=== PATIENT | male | born 1960 | race Caucasian/White ===

== ENCOUNTER → 2016-03-26 | Outpatient (REF) ==
[~2016-03-26] MED LIST: ADDERALL10 MG PO; ADDERALL20 MG PO; ASPIRIN 81M81 MG/TA2 PO; ATIVAN 0.50.5 MG/TAB PO; AVALIDE 12.5 MG1 TA1 PO; AVALIDE PO; AVAPRO300 M1 PO; CARDIZEM CD 18180 MG PO; IBU800 M1 PO; LAMICTAL 25MG T25 MG PO; LEVOTHROID0.075 MG PO; LEVOTHYROXIN0.075 MG PO; LIPITOR20 MG PO; NAPROSYN 2250 MG/TAB PO; NITROSTAT0.4 MG/TAB SL; NORCO 325 MG-51 TAB PO; NORCO 325 MG-7.1 TAB; PERCOCET 325 MG1 TA2 PO; PERCOCET 5/321 UDTAB PO; PRIL40 PO; PRILOSEC 20MG20 MG PO; PRILOSEC20 MG PO; PRILOSEC40 MG PO; PROZAC 10MG10 MG PO; PROZAC40 MG PO; SEROQUEL50 MG PO; SERTRALINE100 MG PO; SYNTHROID0.088 MG/T PO; TESTOSTERONE; TESTOSTERONE SHOT; ULTRAM 50MG TAB50 MG; VALIUM5 MG PO
== END ==
LOC: ZLAB.WCH 10:34
DX: Z01.89 Encounter for other specified special examinations (principal)

== ENCOUNTER → 2016-03-30 | Outpatient (CLI) | payer BC | LOC: BHSO 09:21 | DX: F90.0 Attention-deficit hyperactivity disorder, predominantly inattentive type (principal) ==

== ENCOUNTER 2016-03-31 09:44 | Day surgery (SDC) | payer BC ==
[~2016-03-31] VITALS: Ht 180.3 cm; Wt 86.4 kg
[2016-03-31] VITALS (11 sets, daily range): BP systolic 98–123; BP diastolic 60–75; PULSE 61–82; TEMP 97.7
[~2016-03-31 09:44] MED LIST changes: -ADDERALL20 MG PO; -ASPIRIN 81M81 MG/TA2 PO; -ATIVAN 0.50.5 MG/TAB PO; -CARDIZEM CD 18180 MG PO; -LAMICTAL 25MG T25 MG PO; -LIPITOR20 MG PO; -NITROSTAT0.4 MG/TAB SL; -PROZAC 10MG10 MG PO
[2016-03-31 10:38] LABS: HEMATOCRIT 41.5 % (42.0-52.0); HEMOGLOBIN 14.1 g/dl (13.5-18.0); MEAN CELL VOLUME 85 fl (80.0-100.0); MEAN CORPUSCULAR HEMOGLOBIN 29 pg (27.0-31.0); MEAN CORPUSCULAR HGB CONC 34 g/dl (33.0-37.0); PLATELET COUNT 207 K/mm3 (130-400); RED BLOOD COUNT 4.89 M/mm3 (4.20-5.60); REDCELL DISTRIBUTION WIDTH-CV 13.2 % (11.5-14.5); WHITE BLOOD COUNT 5.9 K/mm3 (4.8-10.8)
[2016-03-31 10:47] LABS: INR 1.1 (0.8-3.0)
[2016-03-31] MEDS ORDERED: ASPIRIN 81M81 MG/TA2 PO (10:47)
[2016-03-31] MEDS ORDERED: PROZAC 10MG10 MG PO (10:48)
[2016-03-31] MEDS ORDERED: NITROSTAT0.4 MG/TAB SL (10:49)
[2016-03-31] MEDS ORDERED: CARDIZEM CD 18180 MG PO (10:50)
[2016-03-31 10:54] LABS: CALCIUM 9.6 mg/dL (8.4-10.2); CREATININE, serum 0.89 mg/dL (0.66-1.25); POTASSIUM 4.4 mmol/L (3.4-5.0)
[2016-03-31] MEDS ORDERED: LIPITOR20 MG PO (13:12)
== END 2016-03-31 16:00 | disposition home or self-care (01) ==
LOC: EUO 09:44 → COL.RAD 09:45 → EUO 09:45
PROVIDERS: Internal Medicine Cardiovascular Disease
DX: I25.10 Atherosclerotic heart disease of native coronary artery without angina pectoris (principal); R06.00 Dyspnea, unspecified; R94.39 Abnormal result of other cardiovascular function study; I08.1 Rheumatic disorders of both mitral and tricuspid valves; F98.8 Other specified behavioral and emotional disorders with onset usually occurring in childhood and adolescence; K21.9 Gastro-esophageal reflux disease without esophagitis; I10 Essential (primary) hypertension; G47.33 Obstructive sleep apnea (adult) (pediatric); E07.9 Disorder of thyroid, unspecified; Z79.82 Long term (current) use of aspirin; Z79.899 Other long term (current) drug therapy; Z87.891 Personal history of nicotine dependence
CPT/HCPCS: C1760; C1894; J2250; J3010; Q9967

== ENCOUNTER → 2016-04-05 | Outpatient (CLI) | payer BC ==
[~2016-04-05] MED LIST changes: +ADDERALL20 MG PO; +ASPIRIN 81M81 MG/TA2 PO; +ATIVAN 0.50.5 MG/TAB PO; +CARDIZEM CD 18180 MG PO; +LAMICTAL 25MG T25 MG PO; +LIPITOR20 MG PO; +NITROSTAT0.4 MG/TAB SL; +PROZAC 10MG10 MG PO
== END ==
LOC: COL.PUL 08:23
DX: R06.02 Shortness of breath (principal)

== ENCOUNTER → 2016-06-21 | Outpatient (CLI) | payer BC | LOC: BHSO 07:52 | DX: F90.0 Attention-deficit hyperactivity disorder, predominantly inattentive type (principal) ==

== ENCOUNTER → 2016-07-16 | Outpatient (CLI) | payer BC | LOC: BHSO 08:14 | DX: F90.0 Attention-deficit hyperactivity disorder, predominantly inattentive type (principal) ==

== ENCOUNTER 2016-07-17 09:58 | Emergency (ER) | payer BC ==
[~2016-07-17] VITALS: Ht 182.9 cm; Wt 90.9 kg
[~2016-07-17 09:58] MED LIST changes: -ADDERALL20 MG PO; -ATIVAN 0.50.5 MG/TAB PO; -LAMICTAL 25MG T25 MG PO
[2016-07-17 10:05] VITALS: BP 126/78; PULSE 87; TEMP 98.1
[2016-07-17] MEDS ORDERED: LAMICTAL 25MG T25 MG PO (10:25)
[2016-07-17] MEDS ORDERED: ADDERALL20 MG PO (10:26)
[2016-07-17] MEDS ORDERED: ATIVAN 0.50.5 MG/TAB PO (10:53)
== END 2016-07-17 11:05 | disposition home or self-care (01) ==
LOC: COL.ER 09:58
DX: R21 Rash and other nonspecific skin eruption (principal); R45.1 Restlessness and agitation; I10 Essential (primary) hypertension; F31.9 Bipolar disorder, unspecified; E03.9 Hypothyroidism, unspecified

== ENCOUNTER → 2016-09-22 | Outpatient (CLI) | payer BC ==
[~2016-09-22] MED LIST changes: +ADDERALL20 MG PO; +ATIVAN 0.50.5 MG/TAB PO; +LAMICTAL 25MG T25 MG PO
== END ==
LOC: BHSO 08:21
DX: F90.0 Attention-deficit hyperactivity disorder, predominantly inattentive type (principal)

== ENCOUNTER 2016-10-05 23:31 | Emergency (ER) | payer BC ==
[~2016-10-05] VITALS: Ht 182.9 cm; Wt 93.1 kg
[2016-10-05 23:36] VITALS: BP 133/63; TEMP 97.7
[2016-10-06 00:32] VITALS: PULSE 90
== END 2016-10-06 00:42 | disposition home or self-care (01) ==
LOC: COL.ER 23:31
DX: J34.89 Other specified disorders of nose and nasal sinuses (principal); E78.00 Pure hypercholesterolemia, unspecified; K21.9 Gastro-esophageal reflux disease without esophagitis; I10 Essential (primary) hypertension; F90.9 Attention-deficit hyperactivity disorder, unspecified type; Z79.82 Long term (current) use of aspirin
CPT/HCPCS: J1170

== ENCOUNTER 2016-12-07 19:10 | Emergency (ER) | payer BC ==
[~2016-12-07] VITALS: Ht 182.9 cm; Wt 93.2 kg
[2016-12-07 19:13] VITALS: BP 139/86; PULSE 71; TEMP 97.8
[2016-12-07] MEDS ORDERED: PREDNISONE20 MG PO (19:49)
== END 2016-12-07 20:04 | disposition home or self-care (01) ==
LOC: COL.ER 19:10
DX: L25.9 Unspecified contact dermatitis, unspecified cause (principal); J32.9 Chronic sinusitis, unspecified; I10 Essential (primary) hypertension; E03.9 Hypothyroidism, unspecified; B19.20 Unspecified viral hepatitis C without hepatic coma; Z79.82 Long term (current) use of aspirin; Z87.891 Personal history of nicotine dependence

== ENCOUNTER → 2017-01-06 | Outpatient (CLI) | payer BC ==
[~2017-01-06] MED LIST changes: +PREDNISONE20 MG PO
== END ==
LOC: BHSO 15:07
DX: F41.1 Generalized anxiety disorder (principal)

== ENCOUNTER → 2017-01-27 | Outpatient (REF) | LOC: ZLAB.WCH 12:07 | DX: Z01.89 Encounter for other specified special examinations (principal) ==

== ENCOUNTER → 2017-02-02 | Outpatient (CLI) | payer BC | LOC: BHSO 16:05 | DX: F41.1 Generalized anxiety disorder (principal) | CPT/HCPCS: G0463 ==

== ENCOUNTER → 2017-08-30 | Outpatient (REF) | LOC: ZLAB.WCH 15:59 | DX: Z01.89 Encounter for other specified special examinations (principal) ==

== ENCOUNTER 2017-09-04 22:32 | Emergency (ER) | payer BC ==
[~2017-09-04] VITALS: Ht 182.9 cm; Wt 104.5 kg
[2017-09-04 22:42] VITALS: TEMP 98.3
[2017-09-04 23:25] LABS: BASO % 0.5 % (0.0-2.0); EOS # 0.1 (0.0-0.7); EOS % 1.4 % (0-4.0); GRAN # 5.2 (1.4-6.5); GRAN % 60.4 % (42.2-75.2); HEMATOCRIT 43.4 % (42.0-52.0); HEMOGLOBIN 15.1 g/dl (13.5-18.0); LYMPH # 2.4 (1.2-3.4); LYMPH % 28.4 % (20.0-51.0); MEAN CELL VOLUME 83 fl (80.0-100.0); MEAN CORPUSCULAR HEMOGLOBIN 29 pg (27.0-31.0); MEAN CORPUSCULAR HGB CONC 35 g/dl (33.0-37.0); MEAN PLATELET VOLUME 10.7 fl (7.4-10.4); MONO # 0.8 (0.1-0.6); MONO % 8.8 % (1.7-9.3); PLATELET COUNT 247 K/mm3 (130-400); RED BLOOD COUNT 5.25 M/mm3 (4.20-5.60); REDCELL DISTRIBUTION WIDTH-CV 12.9 % (11.5-14.5)
[2017-09-04 23:29] LABS: INR 1.1 (0.8-3.0)
[2017-09-04 23:32] LABS: ALANINE AMINOTRANSFERASE 58 U/L (21-72); ALBUMIN 4.6 gm/dL (3.5-5.0); ALKALINE PHOSPHATASE 39 U/L (50-136); ANION GAP 14 mmol/L (7-16); AST,SGOT 39 U/L (15-37); BILIRUBIN,TOTAL 1.2 mg/dL (0.0-1.0); BLOOD UREA NITROGEN 27 mg/dL (9-20); CALCIUM 9.7 mg/dL (8.4-10.2); CARBON DIOXIDE 22 mmol/L (22-30); CHLORIDE 98 mmol/L (98-107); CREATININE, serum 1.62 mg/dL (0.66-1.25); GLUCOSE 113 mg/dL (74-106); POTASSIUM 3.7 mmol/L (3.4-5.0); SODIUM 134 mmol/L (137-145); TOTAL PROTEIN 7.4 gm/dL (6.4-8.2)
[2017-09-04 23:43] LABS: TROPONIN-I < 0.012 ng/mL (0.000-0.034)
[2017-09-05 01:59] VITALS: BP 115/69; PULSE 60
== END 2017-09-05 02:00 | disposition home or self-care (01) ==
LOC: COL.ER 22:32
PROVIDERS: Emergency Medicine
DX: R07.89 Other chest pain (principal); E78.5 Hyperlipidemia, unspecified; I10 Essential (primary) hypertension; E11.9 Type 2 diabetes mellitus without complications; Z79.82 Long term (current) use of aspirin; Z85.038 Personal history of other malignant neoplasm of large intestine
CPT/HCPCS: J7030

== ENCOUNTER 2017-09-15 14:33 | Emergency (ER) | payer BC ==
[~2017-09-15] VITALS: Ht 182.9 cm; Wt 102.3 kg
[2017-09-15 14:45] VITALS: BP 106/76; PULSE 80; TEMP 98
[2017-09-15] MEDS ORDERED: ADDERALL30 MG PO (15:46)
[2017-09-15] MEDS ORDERED: CARDIZEM CD 18180 MG PO (15:46)
[2017-09-15] MEDS ORDERED: CARDURA 2MG2 MG PO (15:47)
[2017-09-15] MEDS ORDERED: PROTONIX 40MG T40 MG PO (15:47)
[2017-09-15] MEDS ORDERED: BRINTELLIX10 PO (15:48)
[2017-09-15] MEDS ORDERED: DAZIDOX10 MG PO (15:48)
[2017-09-15] MEDS ORDERED: AMBIEN 10MG10 MG PO (15:48)
[2017-09-15] MEDS ORDERED: FLEXERIL 1010 MG/TAB PO (15:49)
[2017-09-15] MEDS ORDERED: MOBIC15 MG PO (15:49)
== END 2017-09-15 16:01 | disposition home or self-care (01) ==
LOC: COL.ER 14:33
DX: M54.31 Sciatica, right side (principal); I10 Essential (primary) hypertension; E78.5 Hyperlipidemia, unspecified; F31.9 Bipolar disorder, unspecified; E03.9 Hypothyroidism, unspecified; M62.82 Rhabdomyolysis; M54.9 Dorsalgia, unspecified; G89.29 Other chronic pain; Z87.891 Personal history of nicotine dependence; Z79.82 Long term (current) use of aspirin; Z79.891 Long term (current) use of opiate analgesic
CPT/HCPCS: J1170; J2550

== ENCOUNTER → 2017-09-21 | Outpatient (CLI) | payer BC ==
[~2017-09-21] MED LIST changes: +ADDERALL30 MG PO; +AMBIEN 10MG10 MG PO; +BRINTELLIX10 PO; +CARDURA 2MG2 MG PO; +DAZIDOX10 MG PO; +FLEXERIL 1010 MG/TAB PO; +MOBIC15 MG PO; +PROTONIX 40MG T40 MG PO
== END ==
LOC: COL.VAS 09-19 12:45
DX: I73.9 Peripheral vascular disease, unspecified (principal)

== ENCOUNTER → 2017-10-07 | Outpatient (CLI) | payer BC | LOC: MHCPAIN 08:26 | DX: G89.29 Other chronic pain (principal); M47.817 Spondylosis without myelopathy or radiculopathy, lumbosacral region; M54.16 Radiculopathy, lumbar region; M53.3 Sacrococcygeal disorders, not elsewhere classified; M43.17 Spondylolisthesis, lumbosacral region | CPT/HCPCS: G0463 ==

== ENCOUNTER → 2017-12-11 | Outpatient (REF) | LOC: ZLAB.WCH 09:50 | DX: Z01.89 Encounter for other specified special examinations (principal) ==

== ENCOUNTER 2017-12-24 15:26 | Observation (INO) | payer BC ==
[~2017-12-24] VITALS: Ht 182.9 cm; Wt 96.4 kg
[2017-12-24 16:00] VITALS: BP 122/76; PULSE 85; TEMP 100
[2017-12-24 16:03] LABS: COLLECTION METHOD CLEAN CATCH
[2017-12-24 16:18] LABS: MUCOUS Present /lpf; PH 5 (5-8); SQUAMOUS EPITHELIAL 0-2 /hpf; URINE APPEARANCE Clear; URINE BACTERIA None Seen /hpf; URINE BILIRUBIN Negative (NEGATIVE); URINE BLOOD Negative (NEGATIVE); URINE COLOR Amber; URINE GLUCOSE Negative (NEGATIVE); URINE KETONE Negative (NEGATIVE); URINE LEUKOCYTE ESTERASE Negative (NEGATIVE); URINE NITRATE Negative (NEGATIVE); URINE PROTEIN(semi-quant) 1+ (NEGATIVE); URINE RBC 0-2 /hpf; URINE UROBILINOGEN Negative (NEGATIVE)
[2017-12-24 16:18] LABS: BASO % 0.2 % (0.0-2.0); EOS # 0.1 (0.0-0.7); EOS % 0.7 % (0-4.0); GRAN # 9.8 (1.4-6.5); GRAN % 80.6 % (42.2-75.2); HEMATOCRIT 41.8 % (42.0-52.0); HEMOGLOBIN 14.6 g/dl (13.5-18.0); LYMPH % 8.6 % (20.0-51.0); MEAN CELL VOLUME 87 fl (80.0-100.0); MEAN CORPUSCULAR HEMOGLOBIN 31 pg (27.0-31.0); MEAN CORPUSCULAR HGB CONC 35 g/dl (33.0-37.0); MEAN PLATELET VOLUME 10.6 fl (7.4-10.4); MONO # 1.2 (0.1-0.6); MONO % 9.5 % (1.7-9.3); PLATELET COUNT 234 K/mm3 (130-400); RED BLOOD COUNT 4.79 M/mm3 (4.20-5.60); REDCELL DISTRIBUTION WIDTH-CV 13.3 % (11.5-14.5)
[2017-12-24 16:29] LABS: ALBUMIN 4.5 gm/dL (3.5-5.0); BILIRUBIN,TOTAL 1.3 mg/dL (0.0-1.0); C-REACTIVE PROTEIN 6.7 mg/dL (0.0-0.9); CALCIUM 9.9 mg/dL (8.4-10.2); CREATININE, serum 1.34 mg/dL (0.66-1.25); POTASSIUM 4.3 mmol/L (3.4-5.0); TOTAL PROTEIN 7.5 gm/dL (6.4-8.2)
[2017-12-24] MEDS ORDERED: PROSCAR 5MG5 MG PO (17:28)
[2017-12-25] VITALS (11 sets, daily range): BP systolic 97–129; BP diastolic 42–74; PULSE 64–91; TEMP 97.5–98.8
[2017-12-25 06:15] LABS: HEMATOCRIT 38.6 % (42.0-52.0); HEMOGLOBIN 13.2 g/dl (13.5-18.0); MEAN CELL VOLUME 88 fl (80.0-100.0); MEAN CORPUSCULAR HEMOGLOBIN 30 pg (27.0-31.0); MEAN CORPUSCULAR HGB CONC 34 g/dl (33.0-37.0); MEAN PLATELET VOLUME 11.2 fl (7.4-10.4); PLATELET COUNT 199 K/mm3 (130-400); RED BLOOD COUNT 4.39 M/mm3 (4.20-5.60); REDCELL DISTRIBUTION WIDTH-CV 13.4 % (11.5-14.5)
[2017-12-25 06:30] LABS: ALBUMIN 3.7 gm/dL (3.5-5.0); CALCIUM 8.9 mg/dL (8.4-10.2); CREATININE, serum 1.15 mg/dL (0.66-1.25); MAGNESIUM 1.8 mg/dL (1.6-2.3); PHOSPHOROUS 3.1 mg/dL (2.5-4.5); POTASSIUM 4.6 mmol/L (3.4-5.0)
[2017-12-25 06:42] LABS: BAND 4 % (0-10); EOSINOPHIL 3 % (0-4); LYMPHOCYTE 12 % (20.0-51.0); NEUTROPHILS 74 % (42.0-75.2); PLATELET ESTIMATE NORMAL (NORMAL)
[2017-12-25] MEDS ORDERED: AMOXICILLIN 8751 TAB PO (08:55)
[2017-12-25] MEDS ORDERED: PERCOCET 325 MG1 TA2 PO (08:56)
== END 2017-12-25 16:47 | disposition home or self-care (01) ==
LOC: COL.ER 15:26 → SURG 17:09
PROVIDERS: Emergency Medicine; Surgery
DX: L02.211 Cutaneous abscess of abdominal wall (principal); I10 Essential (primary) hypertension; G47.33 Obstructive sleep apnea (adult) (pediatric); B19.20 Unspecified viral hepatitis C without hepatic coma; K21.9 Gastro-esophageal reflux disease without esophagitis; F32.9 Major depressive disorder, single episode, unspecified; F90.9 Attention-deficit hyperactivity disorder, unspecified type; E03.9 Hypothyroidism, unspecified; D64.9 Anemia, unspecified; Z87.891 Personal history of nicotine dependence
CPT/HCPCS: A4216; A9284; G0378; J0692; J1100; J1885; J2405; J2704; J3010; J7030; Q9967

== ENCOUNTER → 2018-07-21 | Outpatient (CLI) | payer BC ==
[~2018-07-21] MED LIST changes: +AMOXICILLIN 8751 TAB PO; +PROSCAR 5MG5 MG PO
== END ==
LOC: COL.RAD 08:13
DX: M22.41 Chondromalacia patellae, right knee (principal); M17.0 Bilateral primary osteoarthritis of knee; M22.42 Chondromalacia patellae, left knee; M71.22 Synovial cyst of popliteal space [Baker], left knee

== ENCOUNTER 2022-11-20 09:24 | Emergency (ER) | payer OTHER ==
[~2022-11-20] VITALS: Ht 182.9 cm; Wt 81.8 kg
[2022-11-20 09:30] VITALS: TEMP 98.6
[2022-11-20] MEDS ORDERED: ELIQUIS 5MG PO (12:09)
[2022-11-20 12:10] VITALS: BP 102/74; PULSE 69
== END 2022-11-20 12:22 | disposition home or self-care (01) ==
LOC: COL.ER 09:24
DX: M79.662 Pain in left lower leg (principal); M25.551 Pain in right hip; R79.1 Abnormal coagulation profile; Z79.01 Long term (current) use of anticoagulants; Z89.612 Acquired absence of left leg above knee
CPT/HCPCS: J1790